=== PATIENT | male | born 1990 | race Native Hawaiian/Other Pacific Islander ===

== ENCOUNTER 2023-02-27 12:52 | Emergency (ER) | payer MEDICAID ==
[~2023-02-27] VITALS: Ht 190.5 cm; Wt 190.9 kg
[2023-02-27 13:06] VITALS: TEMP 98.2
[2023-02-27] MEDS ORDERED: BACITRACIN 28 GM OINTMENT TP ONE (15:30)
[2023-02-27 18:00] VITALS: BP 146/86; PULSE 80; RESP 16
== END 2023-02-27 19:16 | disposition home or self-care (01) ==
LOC: EMS 12:54
DX: S40.212A Abrasion of left shoulder, initial encounter (principal); S60.212A Contusion of left wrist, initial encounter; V29.888A Rider (driver) (passenger) of other motorcycle injured in other specified transport accidents, initial encounter; Y93.89 Activity, other specified; Y92.89 Other specified places as the place of occurrence of the external cause; Y99.8 Other external cause status
CPT/HCPCS: 99284; 73030-TC; 73060-TC; 73090-TC; 73100-TC; Z7502; Z7610